=== PATIENT | female | born 1985 | race Two or more races ===

== ENCOUNTER 2019-02-08 23:17 | Inpatient (IN) | payer BC, OTHER ==
[~2019-02-08] VITALS: Ht 160 cm; Wt 61.2 kg
[2019-02-08 23:18] VITALS: BP 112/76
[2019-02-08] MEDS ORDERED: Ketorolac 30mg Inj IV ONE (23:30)
--- NOTE | 2019-02-08 23:31 | Emergency Room Report ---
History of Present Illness General Chief Complaint: Nausea, Vomiting, and Diarrhea Source: Patient, EMS Present Illness HPI This is a 33-year-old female with no past medical history. She presents with chief complaint of abdominal pain with nausea and vomiting. Onset around 6 PM. Last thing she ate was around noon. She ate a salad. Since then she has been having cramps and vomiting and retching. Unable to keep anything down. No fever chills. Pain is 9 out of 10.. Vomiting is nonbloody nonbilious. Pain is diffuse. Crampy in nature. No radiation. Allergies: Coded Allergies: INFLUENZA VIRUS VACCINES (Verified Allergy, Unknown, 02/08/19) VANCOMYCIN (Verified Allergy, Unknown, 02/08/19) Patient History Past Medical History: see triage record, old chart reviewed Past Surgical History: other - BTL Pertinent Family History: none Social History: Denies: smoking Immunizations: other Reviewed Nursing Documentation: PMH: Agreed; PSxH: Agreed Nursing Documentation-PMH Past Medical History: No Stated History Review of Systems Eye: Denies: eye pain, blurred vision ENT: Denies: ear pain, nose congestion, throat swelling Respiratory: Denies: cough, shortness of breath Cardiovascular: Denies: chest pain, palpitations Gastrointestinal: Reports: abdominal pain, nausea, vomiting; Denies: diarrhea Musculoskeletal: Denies: back pain, joint pain Skin: Denies: rash Neurological: Denies: headache, numbness Endocrine: Denies: increased thirst, increased urine Hematologic/Lymphatic: Denies: easy bruising All Other Systems: negative except mentioned in HPI Physical Exam Vital Signs Date Time Temp Pulse Resp B/P (MAP) Pulse Ox O2 Delivery O2 Flow Rate FiO2 02/08/19 23:18 99.0 86 18 112/76 (88) 99 Room Air Vitals normal Sp02 EP Interpretation: reviewed, normal General Appearance: well appearing, no apparent distress, alert Head: normocephalic, atraumatic Eyes: bilateral eye PERRL, bilateral eye EOMI ENT: hearing grossly normal, normal pharynx Neck: full range of motion, supple, no meningismus Respiratory: chest non-tender, lungs clear, normal breath sounds Cardiovascular #1: regular rate, rhythm, no murmur Gastrointestinal: no mass, no organomegaly, no bruit, non-distended, tenderness - diffuse, decreased bowel sounds Musculoskeletal: back normal, gait/station normal, normal range of motion Neurologic: alert, oriented x3 Psychiatric: mood/affect normal Medical Decision Making Diagnostic Impression: Primary Impression: SBO (small bowel obstruction) Additional Impressions: Abdominal pain Qualified Codes: R10.84 - Generalized abdominal pain Leukocytosis Qualified Codes: D72.829 - Elevated white blood cell count, unspecified ER Course Patient presents with acute onset abdominal pain with nausea and vomiting. She had possible small bowel obstruction secondary to a stricture. This is seen on CT scan. This may be secondary to inflammatory bowel disease. No family history of Crohn's disease or ulcerative colitis. Patient felt better after IV fluid, morphine and Zofran. NG tube placed. Patient has [employer] insurance. She is approved for here. I discussed the case with Dr. Roberts who will admit. Dr. Kay consulted. Other X-Ray Diagnostic Results Other X-Ray Diagnostic Results : X-Ray ordered: KUB # of Views/Limited Vs Complete: 1 View Indication: Pain EP Interpretation: Yes Interpretation: no dislocation, no soft tissue swelling, no fractures, other - NGT in good position. Impression: Other - NGT in good position. Electronically Signed by: Jose Person MD CT/MRI/US Diagnostic Results CT/MRI/US Diagnostic Results : Imaging Test Ordered: CT abdomen and pelvis Impression Read by radiologist. 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 Last Vital Signs Date Time Temp Pulse Resp B/P (MAP) Pulse Ox O2 Delivery O2 Flow Rate FiO2 02/08/19 23:18 99.0 86 18 112/76 (88) 99 Room Air Status: improved Disposition: ADMITTED INPATIENT Condition: Serious Jose Person MD Feb 08, 2019 23:31
[2019-02-08 23:39] LABS: HEMATOCRIT 46.1 % (37.0-47.0); HEMOGLOBIN 15.5 G/DL (12.0-16.0); MEAN CORPUSCULAR VOLUME 85 FL (80-99); PLATELET COUNT 245 K/UL (150-450); RED BLOOD COUNT 5.45 M/UL (4.20-5.40); RED CELL DISTRIBUTION WIDTH 11.4 % (11.6-14.8); WHITE BLOOD COUNT 20.6 K/UL (4.8-10.8)
[2019-02-08 23:48] LABS: ANION GAP 15 mmol/L (5-15); BLOOD UREA NITROGEN 9 mg/dL (7-18); CALCIUM 9.8 MG/DL (8.5-10.1); CARBON DIOXIDE 24 MMOL/L (21-32); CHLORIDE 104 MMOL/L (98-107); CREATININE 0.9 MG/DL (0.55-1.30); POTASSIUM 3.1 MMOL/L (3.5-5.1); SODIUM 142 MMOL/L (136-145)
[2019-02-08 23:53] LABS: ALANINE AMINOTRANSFERASE 25 U/L (12-78); ALBUMIN 4.6 G/DL (3.4-5.0); ALBUMIN/GLOBULIN RATIO 1.1 (1.0-2.7); ALKALINE PHOSPHATASE 83 U/L (46-116); ASPARTATE AMINO TRANSFERASE 21 U/L (15-37); BILIRUBIN,TOTAL 0.4 MG/DL (0.2-1.0)
[2019-02-09] MEDS ORDERED: Morphine Sulfate 4mg/ml Inj (IV USE ONLY) IVP ONE ×2 (00:15→03:45)
[2019-02-09 00:29] LABS: APPEARANCE,URINE CLEAR; BILIRUBIN, URINE NEGATIVE (NEGATIVE); GLUCOSE, URINE (UA) NEGATIVE (NEGATIVE); KETONES,URINE 3+ (NEGATIVE); LEUKOCYTE ESTERASE ,URINE 1+ (NEGATIVE); NITRITE,URINE NEGATIVE (NEGATIVE); PH,URINE 5 (4.5-8.0); PROTEIN,URINE 2+ (NEGATIVE); UROBILINOGEN,URINE NORMAL MG/DL (0.0-1.0)
[2019-02-09 00:30] LABS: COLOR,URINE YELLOW
--- NOTE | 2019-02-09 01:41 | Diagnostic Imaging Report ---
Indication: Abdominal pain and flank pain for one day Technique: Spiral acquisitions obtained through the abdomen and pelvis. No oral contrast utilized, per emergency room physician request No IV contrast utilized, per referring physician request.. Multiplanar reconstructions were generated. Total dose length product 583.19 mGycm. CTDIvol(s) 11.76 mGy. Dose reduction achieved using automated exposure control Comparison: None Findings: The distal ileum is markedly dilated, filled with small bowel feces. There is very slight stranding of the adjacent mesenteric fat. No definite transition point demonstrated, and the dilatation extends largely to the terminal ileum which is only slightly smaller in caliber than the more proximal bowel. There is a mildly dilated gas-filled single small bowel loop in the left upper quadrant with some small bowel feces seen within the adjacent segment. Normal appendix. No evidence of diverticulosis or diverticulitis. No free or loculated intraperitoneal gas or fluid. The distal esophagus, stomach, duodenum are unremarkable. Lack of IV contrast limits assessment of the solid organs. The liver, gallbladder, bile ducts, pancreas, spleen, adrenals are all unremarkable. There is a circumaortic left renal vein. The kidneys are unremarkable. No retroperitoneal or mesenteric mass or adenopathy. Uterus and ovaries are unremarkable. The included lung bases are clear. The bones are unremarkable. Impression: Dilated distal ileum with small bowel feces, slight stranding of the perienteric fat. Only slight tapering of the distal small bowel but no definite abrupt distal transition point. Suspect findings are functional on the basis of inflammatory changes of the distal ileum. Distal stricture not completely excludable. Single prominent gas-filled left upper quadrant small bowel loop, significance uncertain No other acute or significant abnormality. Incidental finding of circumaortic left renal vein This essentially agrees with the preliminary interpretation provided overnight by [facility] teleradiology service, with some variation. The CT scanner at [facility] is accredited by the [employer] and the scans are performed using protocols designed to limit radiation exposure to as low as reasonably achievable to attain images of sufficient resolution adequate for diagnostic evaluation.
[2019-02-09 02:11] VITALS: BP 141/92
[2019-02-09 04:53] VITALS: BP 155/109
[2019-02-09] MEDS ORDERED: MULTIVITAMINS1 EAC2 ORAL (06:22)
[2019-02-09] MEDS ORDERED: VITAMIN C500 M1 ORAL (06:22)
[2019-02-09] MEDS: Morphine Sulfate 2mg/ml Inj(IV/IM USE ONLY) IVP PRN (06:31)
[2019-02-09] MEDS: D5 1/2NS w/KCl 20mEq 1,000 ML IV SCH ×3 (06:43→21:42)
[2019-02-09 08:00] VITALS: BP 135/91
--- NOTE | 2019-02-09 09:04 | History & Physical ---
History and Physical History & Physicial SBO, stricture possible IBD n/v, low K CRPS RUE HTN surgical consult NGT IVF abx placed on CS transfer list Smith Roberts MD Feb 09, 2019 09:04
[2019-02-09 09:28] LABS: BASOPHILS % (AUTO) 0.6 % (0.0-2.0); EOSINOPHILS % (AUTO) 0.2 % (0.0-3.0); HEMATOCRIT 38.3 % (37.0-47.0); HEMOGLOBIN 12.9 G/DL (12.0-16.0); LYMPHOCYTES % (AUTO) 23.6 % (20.0-45.0); MEAN CORPUSCULAR VOLUME 86 FL (80-99); MONOCYTES % (AUTO) 6.2 % (1.0-10.0); NEUTROPHILS % (AUTO) 69.5 % (45.0-75.0); PLATELET COUNT 210 K/UL (150-450); RED BLOOD COUNT 4.45 M/UL (4.20-5.40); RED CELL DISTRIBUTION WIDTH 11.6 % (11.6-14.8); WHITE BLOOD COUNT 13.3 K/UL (4.8-10.8)
[2019-02-09 09:58] LABS: ANION GAP 10 mmol/L (5-15); BLOOD UREA NITROGEN 7 mg/dL (7-18); CALCIUM 8.3 MG/DL (8.5-10.1); CARBON DIOXIDE 25 MMOL/L (21-32); CHLORIDE 104 MMOL/L (98-107); CREATININE 0.8 MG/DL (0.55-1.30); POTASSIUM 3.4 MMOL/L (3.5-5.1); SODIUM 139 MMOL/L (136-145)
--- NOTE | 2019-02-09 10:02 | Diagnostic Imaging Report ---
Indication: Post nasogastric tube placement Technique: Supine view of the abdomen Comparison: none Findings: There is a nasogastric tube, tip of which projects at the level gastric body, proximal port beyond the gastroesophageal junction. Bowel gas pattern is unremarkable. No masses or unusual calcifications Impression: Satisfactory nasogastric intubation
[2019-02-09 12:00] VITALS: BP 146/96
[2019-02-09] MEDS: Morphine Sulfate 4mg/ml Inj (IV USE ONLY) IVP PRN (12:55)
[2019-02-09] MEDS ORDERED: NS 275ml ONE (12:58)
[2019-02-09] MEDS ORDERED: NS 500ML ONE (12:58)
[2019-02-09] MEDS ORDERED: Tubing IV Secondary IV ONE (12:58)
--- NOTE | 2019-02-09 15:18 | Consultation ---
History of Present Illness General Date patient seen: Feb 09, 2019 Reason for Hospitalization: Nausea, Vomiting, and Diarrhea Present Illness HPI This is a very pleasant 33-year-old female with no significant past medical history and history of lap scopic tubal ligation who presented with acute onset of abdominal pain nausea emesis and diarrhea for 1 day. States she was well yesterday until the evening when she began to have worsening abdominal discomfort followed by multiple bouts of nonbloody emesis and one episode of diarrhea yesterday. Came to the emergency room for evaluation at which time was identified to have a leukocytosis and CT scans concerning for small bowel obstruction. Patient was admitted for care and management. Surgery called to evaluate. Patient seen, patient evaluate, chart reviewed. Currently states she feels better. Is uncomfortable with NG tube but otherwise feeling better. Currently minimal nausea no emesis abdominal pain just cramping. States abdominal pain prior was 10 out of 10 cramping generalized abdominal pain but now subsided. Has not had flatus or bowel movement recently. Allergies: Coded Allergies: INFLUENZA VIRUS VACCINES (Verified Allergy, Unknown, 02/08/19) VANCOMYCIN (Verified Allergy, Unknown, 02/08/19) Medication History Scheduled Ascorbic Acid* (Vitamin C*), 1,000 MG ORAL DAILY, (Reported) Multivitamins* (Multivitamins*), 1 TAB ORAL DAILY, (Reported) Patient History History Provided By: Patient, Family Member, Significant Other, Medical Record , PMD Healthcare decision maker Resuscitation status Full Code Advanced Directive on File Past Medical/Surgical History Past Medical/Surgical History: (1) Leukocytosis (2) Abdominal pain (3) SBO (small bowel obstruction) Review of Systems Review of Symptoms General ROS: no weight loss or fever Psychological ROS: no depression or mood changes, no memory loss Ophthalmic ROS: no visual changes or eye irritation ENT ROS: no nasal congestion, hearing loss, dizziness Allergy and Immunology ROS: no allergic symptoms or urticaria Hematological and Lymphatic ROS: no swollen glands, unusual bleeding or bruising Endocrine ROS: no polyuria, polydipsia, weight changes, temperature intolerance Respiratory ROS: no cough, shortness of breath, or wheezing Cardiovascular ROS: no chest pain or dyspnea on exertion Gastrointestinal ROS: abdominal pain, no bright red blood in stool. Musculoskeletal ROS: no myalgias or arthralgias Neurological ROS: no TIA or stroke symptoms Dermatological ROS: no new or changing skin lesions, rashes or pruritis Physical Exam Physical Exam General appearance: alert, cooperative, no distress, appears stated age Head: Normocephalic, without obvious abnormality, atraumatic Eyes: conjunctivae/corneas clear. PERRL, EOM's intact. Fundi benign Throat: Lips, mucosa, and tongue normal. Teeth and gums normal Neck: supple, symmetrical, trachea midline, no adenopathy, thyroid: not enlarged, symmetric, no tenderness/mass/nodules, no carotid bruit and no JVD Lungs: clear to auscultation bilaterally Heart: regular rate and rhythm, S1, S2 normal, no murmur, click, rub or gallop Abdomen: soft, non-tender. Bowel sounds normal. No masses, no organomegaly Extremities: extremities normal, atraumatic, no cyanosis or edema Pulses: 2+ and symmetric Skin: Skin color, texture, turgor normal. No rashes or lesions Neurologic: Grossly normal Last 24 Hour Vital Signs Date Time Temp Pulse Resp B/P (MAP) Pulse Ox O2 Delivery O2 Flow Rate FiO2 02/09/19 12:00 98.4 80 16 146/96 (113) 98 02/09/19 09:00 Room Air 02/09/19 08:00 97.8 86 18 135/91 (106) 98 02/09/19 06:04 Room Air 02/09/19 04:53 98.4 96 16 155/109 (124) 99 02/09/19 04:13 99.0 89 18 141/92 99 Room Air 02/09/19 02:11 99.0 89 18 141/92 99 Room Air 02/09/19 00:45 99.0 02/09/19 00:05 99.0 02/08/19 23:18 99.0 87 18 112/76 99 Room Air 02/08/19 23:18 99.0 86 18 112/76 (88) 99 Room Air Intake and Output 02/08/19 02/09/19 19:00 07:00 Intake Total 100 ml Balance 100 ml Intake Oral 0 ml IV Total 100 ml # Voids 1 Laboratory Tests Test 02/08/19 23:29 02/09/19 00:22 02/09/19 08:35 White Blood Count 20.6 K/UL (4.8-10.8) H 13.3 K/UL (4.8-10.8) H Red Blood Count 5.45 M/UL (4.20-5.40) H 4.45 M/UL (4.20-5.40) Hemoglobin 15.5 G/DL (12.0-16.0) 12.9 G/DL (12.0-16.0) Hematocrit 46.1 % (37.0-47.0) 38.3 % (37.0-47.0) Mean Corpuscular Volume 85 FL (80-99) 86 FL (80-99) Mean Corpuscular Hemoglobin 28.4 PG (27.0-31.0) 29.0 PG (27.0-31.0) Mean Corpuscular Hemoglobin Concent 33.6 G/DL (32.0-36.0) 33.8 G/DL (32.0-36.0) Red Cell Distribution Width 11.4 % (11.6-14.8) L 11.6 % (11.6-14.8) Platelet Count 245 K/UL (150-450) 210 K/UL (150-450) Mean Platelet Volume 8.6 FL (6.5-10.1) 8.9 FL (6.5-10.1) Neutrophils (%) (Auto) % (45.0-75.0) 69.5 % (45.0-75.0) Lymphocytes (%) (Auto) % (20.0-45.0) 23.6 % (20.0-45.0) Monocytes (%) (Auto) % (1.0-10.0) 6.2 % (1.0-10.0) Eosinophils (%) (Auto) % (0.0-3.0) 0.2 % (0.0-3.0) Basophils (%) (Auto) % (0.0-2.0) 0.6 % (0.0-2.0) Differential Total Cells Counted 100 Neutrophils % (Manual) 79 % (45-75) H Lymphocytes % (Manual) 16 % (20-45) L Monocytes % (Manual) 5 % (1-10) Eosinophils % (Manual) 0 % (0-3) Basophils % (Manual) 0 % (0-2) Band Neutrophils 0 % (0-8) Platelet Estimate Adequate Platelet Morphology Normal Red Blood Cell Morphology Normal Sodium Level 142 MMOL/L (136-145) 139 MMOL/L (136-145) Potassium Level 3.1 MMOL/L (3.5-5.1) L 3.4 MMOL/L (3.5-5.1) L Chloride Level 104 MMOL/L (98-107) 104 MMOL/L (98-107) Carbon Dioxide Level 24 MMOL/L (21-32) 25 MMOL/L (21-32) Anion Gap 15 mmol/L (5-15) 10 mmol/L (5-15) Blood Urea Nitrogen 9 mg/dL (7-18) 7 mg/dL (7-18) Creatinine 0.9 MG/DL (0.55-1.30) 0.8 MG/DL (0.55-1.30) Estimat Glomerular Filtration Rate > 60 mL/min (>60) > 60 mL/min (>60) Glucose Level 161 MG/DL (74-106) H 112 MG/DL (74-106) H Calcium Level 9.8 MG/DL (8.5-10.1) 8.3 MG/DL (8.5-10.1) L Total Bilirubin 0.4 MG/DL (0.2-1.0) Aspartate Amino Transf (AST/SGOT) 21 U/L (15-37) Alanine Aminotransferase (ALT/SGPT) 25 U/L (12-78) Alkaline Phosphatase 83 U/L (46-116) Total Protein 8.8 G/DL (6.4-8.2) H Albumin 4.6 G/DL (3.4-5.0) Globulin 4.2 g/dL Albumin/Globulin Ratio 1.1 (1.0-2.7) Lipase 107 U/L (73-393) Urine Color Yellow Urine Appearance Clear Urine pH 5 (4.5-8.0) Urine Specific [place] 1.025 (1.005-1.035) Urine Protein 2+ (NEGATIVE) H Urine Glucose (UA) Negative (NEGATIVE) Urine Ketones 3+ (NEGATIVE) H Urine Blood 2+ (NEGATIVE) H Urine Nitrite Negative (NEGATIVE) Urine Bilirubin Negative (NEGATIVE) Urine Urobilinogen Normal MG/DL (0.0-1.0) Urine Leukocyte Esterase 1+ (NEGATIVE) H Urine RBC 2-4 /HPF (0 - 2) H Urine WBC 0-2 /HPF (0 - 2) Urine Squamous Epithelial Cells Few /LPF (NONE/OCC) Urine Bacteria Few /HPF (NONE) Urine HCG, Qualitative Negative (NEGATIVE) Height (Feet): 5 Height (Inches): 3.00 Weight (Pounds): 135 Medications Current Medications Medications (Trade) Dose Ordered Sig/Armando Route PRN Reason Start Time Stop Time Status Last Admin Dose Admin Ciprofloxacin 200 ml @ 200 mls/hr Q12H IV 02/09/19 14:00 02/16/19 13:59 02/09/19 14:49 Dextrose/ Electrolytes 1,000 ml @ 100 mls/hr Q10H IV 02/09/19 05:15 03/11/19 05:14 02/09/19 06:43 Metronidazole 100 ml @ 100 mls/hr Q8H IVPB 02/09/19 10:00 02/16/19 09:59 02/09/19 10:37 Morphine Sulfate (Morphine Sulfate) 2 mg Q3H PRN IVP Moderate Pain (Pain Scale 4-6) 02/09/19 05:15 02/16/19 05:14 02/09/19 06:31 Morphine Sulfate (Morphine Sulfate) 4 mg Q3H PRN IVP Severe Pain (Pain Scale 7-10) 02/09/19 05:15 02/16/19 05:14 02/09/19 12:55 Ondansetron HCl (Zofran) 4 mg Q4H PRN IVP Nausea & Vomiting 02/09/19 05:15 03/11/19 05:14 02/09/19 06:30 Assessment/Plan Problem List: (1) Leukocytosis ICD Codes: D72.829 - Elevated white blood cell count, unspecified SNOMED: 246220300, [id number] Qualifiers: Qualified Codes: D72.829 - Elevated white blood cell count, unspecified (2) Abdominal pain Assessment & Plan: 33-year-old female with acute onset abdominal pain nausea vomiting diarrhea. Leukocytosis 20,000 now resolving. Abdominal discomfort significantly improved since admission. Afebrile, hemodynamically stable. NG tube output with minimal clear gastric contents. No flatus or BM since admission. CT scan evaluated and are reviewed. Initial reading possible small bowel obstruction secondary to stricture with our radiologist noting a slight discrepancy with no definitive transition point. Abdominal exam is fairly benign at this time CT reviewed and agree with our radiologist interpretation Leukocytosis improving NG tube output minimal I had a long discussion with patient and her family at bedside they do not recommend urgent surgical intervention as she is improved since admission. Recommend bowel rest n.p.o. IV antibiotics for likely enteritis. She has no significant history of Crohn's, colitis, and family bowel disease or syndrome. This is acute onset of abdominal pain with nausea vomiting and diarrhea more likely enteritis associated with potential oral intake. Will follow with serial abdominal exams. If improving will anticipate removal of NG tube and trial oral diet. If worsening we will have to consider diagnostic laparoscopy to ensure no abnormal intra abdominal process Thank you for allowing participate in patient care will follow with recommendations ICD Codes: R10.9 - Unspecified abdominal pain SNOMED: [id number], [id number] Qualifiers: Qualified Codes: R10.84 - Generalized abdominal pain (3) SBO (small bowel obstruction) Assessment & Plan: Findings: The distal ileum is markedly dilated, filled with small bowel feces. There is very slight stranding of the adjacent mesenteric fat. No definite transition point demonstrated, and the dilatation extends largely to the terminal ileum which is only slightly smaller in caliber than the more proximal bowel. There is a mildly dilated gas-filled single small bowel loop in the left upper quadrant with some small bowel feces seen within the adjacent segment. Normal appendix. No evidence of diverticulosis or diverticulitis. No free or loculated intraperitoneal gas or fluid. The distal esophagus, stomach, duodenum are unremarkable. Lack of IV contrast limits assessment of the solid organs. The liver, gallbladder, bile ducts, pancreas, spleen, adrenals are all unremarkable. There is a circumaortic left renal vein. The kidneys are unremarkable. No retroperitoneal or mesenteric mass or adenopathy. Uterus and ovaries are unremarkable. The included lung bases are clear. The bones are unremarkable. Impression: Dilated distal ileum with small bowel feces, slight stranding of the perienteric fat. Only slight tapering of the distal small bowel but no definite abrupt distal transition point. Suspect findings are functional on the basis of inflammatory changes of the distal ileum. Distal stricture not completely excludable. Single prominent gas-filled left upper quadrant small bowel loop, significance uncertain No other acute or significant abnormality. Incidental finding of circumaortic left renal vein This essentially agrees with the preliminary interpretation provided overnight by [facility], with some variation. ICD Codes: K56.609 - Unspecified intestinal obstruction, unspecified as to partial versus complete obstruction SNOMED: [id number], [id number] Jerel Kay Feb 09, 2019 15:18
[2019-02-09 16:00] VITALS: BP 156/105
--- NOTE | 2019-02-09 17:30 | History and Physical Report ---
DATE OF ADMISSION: 02/09/2019 CHIEF COMPLAINT: Abdominal pain and vomiting. HISTORY OF PRESENT ILLNESS: This is a 33-year-old woman was in normal health until yesterday afternoon around 4 p.m. when she began having abdominal pain. By 8 p.m., she began having severe pain and vomiting. She came to the emergency department by paramedics and was found to have a bowel obstruction with a possible stricture of the small bowel and admission was arranged. She is feeling better after pain medication and intravenous fluids. She has a history of tubal ligation, but no other abdominal surgery in the past. She has had no problem with abdominal complaints in the past. PAST MEDICAL HISTORY: Complex regional pain syndrome involving the right upper extremity following the injury. She has mild hypertension and was started on medication a few weeks ago. SURGICAL HISTORY: She had no other surgical history except tubal ligation as noted above. ALLERGIES: Flu vaccine and vancomycin. MEDICATIONS: She is on unknown blood pressure medication and vitamins. Since coming to the emergency department, she was given morphine, Cipro, and Flagyl as well as intravenous fluids. REVIEW OF SYSTEMS: Otherwise unremarkable. PHYSICAL EXAMINATION: GENERAL: The patient is alert and responds appropriately. VITAL SIGNS: Stable. The blood pressure was as high as 155/109, but this morning is 135/91. There is no fever. She is somewhat overweight. HEENT: The head is normocephalic. NECK: No jugular venous distention. CHEST: Clear cardiac rhythm is regular. ABDOMEN: Soft. There is mild tenderness in the periumbilical area in the right lower quadrant. There is no liver or spleen enlargement. No mass or ascites. There is no distention. Bowel sounds are hypoactive. EXTREMITIES: Have no clubbing, cyanosis, or edema. LABORATORY AND DIAGNOSTIC DATA: Laboratory studies showed the urine had some ketones, protein, and a few red cells, though there is no sign of infection. The white count is 20,600, hemoglobin is 15.5. There is a left shift. Chemistry shows low potassium. BUN is 9, creatinine 0.9, blood sugar 161, protein 8.8, otherwise unremarkable. CT of the abdomen shows a long segment of narrowing of the small bowel with wall thickening suggesting a stricture with dilated small bowel loops, some of which contain fecal material. There is no free air or fluid. The findings suggest inflammatory bowel disease causing the stricture. IMPRESSION: 1. Small bowel obstruction due to stricture. 2. Nausea, vomiting, and hypokalemia. 3. Possible inflammatory bowel disease. 4. Right upper extremity complex regional pain syndrome. 5. Borderline hypertension. PLAN: The patient will be given intravenous fluids, antibiotics, and pain medications. Surgery consultation has been requested. Smith Roberts M.D. DR: ALINE JOB#: [id number] CC:
[2019-02-09 20:00] VITALS: BP 151/98
[2019-02-10] VITALS: BP 149/96
[2019-02-10 04:00] VITALS: BP 158/99
[2019-02-10 06:00] LABS: BASOPHILS % (AUTO) 0.4 % (0.0-2.0); EOSINOPHILS % (AUTO) 0.3 % (0.0-3.0); HEMATOCRIT 40.5 % (37.0-47.0); HEMOGLOBIN 13.7 G/DL (12.0-16.0); LYMPHOCYTES % (AUTO) 25.2 % (20.0-45.0); MEAN CORPUSCULAR VOLUME 86 FL (80-99); MONOCYTES % (AUTO) 8.2 % (1.0-10.0); NEUTROPHILS % (AUTO) 65.9 % (45.0-75.0); PLATELET COUNT 236 K/UL (150-450); RED BLOOD COUNT 4.72 M/UL (4.20-5.40); RED CELL DISTRIBUTION WIDTH 11.6 % (11.6-14.8); WHITE BLOOD COUNT 9.8 K/UL (4.8-10.8)
[2019-02-10 06:35] LABS: ALANINE AMINOTRANSFERASE 17 U/L (12-78); ALBUMIN 3.7 G/DL (3.4-5.0); ALKALINE PHOSPHATASE 63 U/L (46-116); ANION GAP 8 mmol/L (5-15); ASPARTATE AMINO TRANSFERASE 15 U/L (15-37); BILIRUBIN,TOTAL 0.4 MG/DL (0.2-1.0); BLOOD UREA NITROGEN 3 mg/dL (7-18); CALCIUM 8.9 MG/DL (8.5-10.1); CARBON DIOXIDE 28 MMOL/L (21-32); CHLORIDE 107 MMOL/L (98-107); CREATININE 0.8 MG/DL (0.55-1.30); POTASSIUM 3.4 MMOL/L (3.5-5.1); SODIUM 143 MMOL/L (136-145)
[2019-02-10 08:00] VITALS: BP 140/96
[2019-02-10] MEDS: Morphine Sulfate 4mg/ml Inj (IV USE ONLY) IVP PRN (09:30)
[2019-02-10] MEDS: D5 1/2NS w/KCl 20mEq 1,000 ML IV SCH (09:30)
[2019-02-10 12:00] VITALS: BP 157/105
--- NOTE | 2019-02-10 14:14 | Surgery Progress Note ---
Surgery Progress Note Subjective Additional Comments Patient seen and examined bedside. States passing flatus earlier today. Leukocytosis resolved. Labs noted. Pain about the same. Right lower quadrant discomfort at times. NG tube output clear now Objective Last 24 Hour Vital Signs Date Time Temp Pulse Resp B/P (MAP) Pulse Ox O2 Delivery O2 Flow Rate FiO2 02/10/19 12:00 98.6 77 157/105 (122) 02/10/19 08:08 Room Air 02/10/19 08:00 98.2 87 18 140/96 (111) 97 02/10/19 04:00 98.9 89 18 158/99 (118) 98 02/10/19 00:00 98.6 87 16 149/96 (113) 97 02/09/19 21:00 Room Air 02/09/19 20:00 98.9 96 16 151/98 (115) 98 02/09/19 16:00 98.3 84 16 156/105 (122) 96 I&O Intake and Output 02/09/19 02/10/19 18:59 06:59 Intake Total 1500 ml 600 ml Output Total 100 ml 1625 ml Balance 1400 ml -1025 ml IV Total 1500 ml 600 ml Output Urine Total 1400 ml Gastric Drainage Total 100 ml 225 ml # Voids 1 2 Cardiovascular: RSR Respiratory: clear Abdomen: soft, distended - Mild, tenderness - Some discomfort in the right lower quadrant. No rebound or guarding, decreased bowel sounds Extremities: no edema, no tenderness, no cyanosis Laboratory Tests Test 02/10/19 05:20 White Blood Count 9.8 K/UL (4.8-10.8) Red Blood Count 4.72 M/UL (4.20-5.40) Hemoglobin 13.7 G/DL (12.0-16.0) Hematocrit 40.5 % (37.0-47.0) Mean Corpuscular Volume 86 FL (80-99) Mean Corpuscular Hemoglobin 28.9 PG (27.0-31.0) Mean Corpuscular Hemoglobin Concent 33.7 G/DL (32.0-36.0) Red Cell Distribution Width 11.6 % (11.6-14.8) Platelet Count 236 K/UL (150-450) Mean Platelet Volume 9.0 FL (6.5-10.1) Neutrophils (%) (Auto) 65.9 % (45.0-75.0) Lymphocytes (%) (Auto) 25.2 % (20.0-45.0) Monocytes (%) (Auto) 8.2 % (1.0-10.0) Eosinophils (%) (Auto) 0.3 % (0.0-3.0) Basophils (%) (Auto) 0.4 % (0.0-2.0) Erythrocyte Sedimentation Rate 24 MM/HR (0-20) H Sodium Level 143 MMOL/L (136-145) Potassium Level 3.4 MMOL/L (3.5-5.1) L Chloride Level 107 MMOL/L (98-107) Carbon Dioxide Level 28 MMOL/L (21-32) Anion Gap 8 mmol/L (5-15) Blood Urea Nitrogen 3 mg/dL (7-18) L Creatinine 0.8 MG/DL (0.55-1.30) Estimat Glomerular Filtration Rate > 60 mL/min (>60) Glucose Level 124 MG/DL (74-106) H Calcium Level 8.9 MG/DL (8.5-10.1) Total Bilirubin 0.4 MG/DL (0.2-1.0) Aspartate Amino Transf (AST/SGOT) 15 U/L (15-37) Alanine Aminotransferase (ALT/SGPT) 17 U/L (12-78) Alkaline Phosphatase 63 U/L (46-116) C-Reactive Protein, Quantitative 1.5 mg/dL (0.00-0.90) H Total Protein 7.4 G/DL (6.4-8.2) Albumin 3.7 G/DL (3.4-5.0) Globulin 3.7 g/dL Albumin/Globulin Ratio 1.0 (1.0-2.7) Amylase Level 66 U/L (25-115) Lipase 114 U/L (73-393) Plan Problems: (1) Leukocytosis (2) Abdominal pain Assessment & Plan: 33-year-old female with acute onset abdominal pain nausea vomiting diarrhea. Leukocytosis 20,000 now resolving. Abdominal discomfort significantly improved since admission. Afebrile, hemodynamically stable. NG tube output with minimal clear gastric contents. No flatus or BM since admission. CT scan evaluated and are reviewed. Initial reading possible small bowel obstruction secondary to stricture with our radiologist noting a slight discrepancy with no definitive transition point. Abdominal exam is fairly benign at this time CT reviewed and agree with our radiologist interpretation Leukocytosis improving NG tube output minimal I had a long discussion with patient and her family at bedside they do not recommend urgent surgical intervention as she is improved since admission. Recommend bowel rest n.p.o. IV antibiotics for likely enteritis. She has no significant history of Crohn's, colitis, and family bowel disease or syndrome. This is acute onset of abdominal pain with nausea vomiting and diarrhea more likely enteritis associated with potential oral intake. Will follow with serial abdominal exams. If improving will anticipate removal of NG tube and trial oral diet. If worsening we will have to consider diagnostic laparoscopy to ensure no abnormal intra abdominal process Discussed with the patient and her family at bedside in regards to plan and care. Patient has not made significant improvement but is passing flatus. NG tube output is clearing up. Abdominal exam with some discomfort but no peritoneal signs significant tenderness rebound or guarding. Patient states she overall feels unwell but feels more comfortable when she gets the morphine. Labs have improved. I discussed with patient and family above and plan. Will consider diagnostic laparoscopy if does not significantly improve by tomorrow. Continue current management will follow with recognitions Thank you for allowing participate in patient care will follow with recommendations (3) SBO (small bowel obstruction) Assessment & Plan: Findings: The distal ileum is markedly dilated, filled with small bowel feces. There is very slight stranding of the adjacent mesenteric fat. No definite transition point demonstrated, and the dilatation extends largely to the terminal ileum which is only slightly smaller in caliber than the more proximal bowel. There is a mildly dilated gas-filled single small bowel loop in the left upper quadrant with some small bowel feces seen within the adjacent segment. Normal appendix. No evidence of diverticulosis or diverticulitis. No free or loculated intraperitoneal gas or fluid. The distal esophagus, stomach, duodenum are unremarkable. Lack of IV contrast limits assessment of the solid organs. The liver, gallbladder, bile ducts, pancreas, spleen, adrenals are all unremarkable. There is a circumaortic left renal vein. The kidneys are unremarkable. No retroperitoneal or mesenteric mass or adenopathy. Uterus and ovaries are unremarkable. The included lung bases are clear. The bones are unremarkable. Impression: Dilated distal ileum with small bowel feces, slight stranding of the perienteric fat. Only slight tapering of the distal small bowel but no definite abrupt distal transition point. Suspect findings are functional on the basis of inflammatory changes of the distal ileum. Distal stricture not completely excludable. Single prominent gas-filled left upper quadrant small bowel loop, significance uncertain No other acute or significant abnormality. Incidental finding of circumaortic left renal vein This essentially agrees with the preliminary interpretation provided overnight by [facility] teleradiology service, with some variation. Jerel Kay Feb 10, 2019 14:14
[2019-02-10 16:00] VITALS: BP 118/71
[2019-02-10] MEDS ORDERED: Tubing IV Secondary IV ONE (16:36)
--- NOTE | 2019-02-10 18:44 | Pulmonology Progress Note ---
Assessment/Plan Assessment/Plan 1. Small bowel obstruction due to stricture. 2. Nausea, vomiting, and hypokalemia. 3. Possible inflammatory bowel disease. 4. Right upper extremity complex regional pain syndrome. 5. Borderline hypertension. 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 in am check labs pain cotnrol dvt prophylaxis Subjective Constitutional: Reports: no symptoms HEENT: Repors: no symptoms Respiratory: Reports: no symptoms Cardiovascular: Reports: no symptoms Gastrointestinal/Abdominal: Reports: nausea, vomiting, other - pain Neurologic: Reports: no symptoms Psychiatric: Reports: no symptoms Allergies: Coded Allergies: INFLUENZA VIRUS VACCINES (Verified Allergy, Unknown, 02/08/19) VANCOMYCIN (Verified Allergy, Unknown, 02/08/19) Subjective NGt to LIWS positive output signficnatn pain no fever no bleeding 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 Objective Last 24 Hour Vital Signs Date Time Temp Pulse Resp B/P (MAP) Pulse Ox O2 Delivery O2 Flow Rate FiO2 02/10/19 16:00 97.8 71 18 118/71 (87) 98 02/10/19 12:00 98.6 77 157/105 (122) 02/10/19 08:08 Room Air 02/10/19 08:00 98.2 87 18 140/96 (111) 97 02/10/19 04:00 98.9 89 18 158/99 (118) 98 02/10/19 00:00 98.6 87 16 149/96 (113) 97 02/09/19 21:00 Room Air 02/09/19 20:00 98.9 96 16 151/98 (115) 98 Intake and Output 02/09/19 02/10/19 19:00 07:00 Intake Total 1400 ml 600 ml Output Total 100 ml 1625 ml Balance 1300 ml -1025 ml IV Total 1400 ml 600 ml Output Urine Total 1400 ml Gastric Drainage Total 100 ml 225 ml # Voids 1 2 General Appearance: WD/WN Respiratory/Chest: lungs clear, normal breath sounds Cardiovascular: normal rate, regular rhythm Abdomen: distended, guarding, tender Neurologic/Psychiatric: alert, oriented x 3 Laboratory Tests 02/10/19 05:20: White Blood Count 9.8, Red Blood Count 4.72, Hemoglobin 13.7, Hematocrit 40.5, Mean Corpuscular Volume 86, Mean Corpuscular Hemoglobin 28.9, Mean Corpuscular Hemoglobin Concent 33.7, Red Cell Distribution Width 11.6, Platelet Count 236, Mean Platelet Volume 9.0, Neutrophils (%) (Auto) 65.9, Lymphocytes (%) (Auto) 25.2, Monocytes (%) (Auto) 8.2, Eosinophils (%) (Auto) 0.3, Basophils (%) (Auto ) 0.4, Erythrocyte Sedimentation Rate 24H, Sodium Level 143, Potassium Level 3.4L, Chloride Level 107, Carbon Dioxide Level 28, Anion Gap 8, Blood Urea Nitrogen 3L, Creatinine 0.8, Estimat Glomerular Filtration Rate > 60, Glucose Level 124H, Calcium Level 8.9, Total Bilirubin 0.4, Aspartate Amino Transf (AST/ SGOT) 15, Alanine Aminotransferase (ALT/SGPT) 17, Alkaline Phosphatase 63, C- Reactive Protein, Quantitative 1.5H, Total Protein 7.4, Albumin 3.7, Globulin 3.7, Albumin/Globulin Ratio 1.0, Amylase Level 66, Lipase 114 Current Medications Medications (Trade) Dose Ordered Sig/Armando Route PRN Reason Start Time Stop Time Status Last Admin Dose Admin Ciprofloxacin 200 ml @ 200 mls/hr Q12H IV 02/09/19 14:00 02/16/19 13:59 02/10/19 16:02 Dextrose/ Electrolytes 1,000 ml @ 100 mls/hr Q10H IV 02/09/19 05:15 03/11/19 05:14 02/10/19 09:30 Metronidazole 100 ml @ 100 mls/hr Q8H IVPB 02/09/19 10:00 02/16/19 09:59 02/10/19 17:35 Morphine Sulfate (Morphine Sulfate) 2 mg Q3H PRN IVP Moderate Pain (Pain Scale 4-6) 02/09/19 05:15 02/16/19 05:14 02/09/19 06:31 Morphine Sulfate (Morphine Sulfate) 4 mg Q3H PRN IVP Severe Pain (Pain Scale 7-10) 02/09/19 05:15 02/16/19 05:14 02/10/19 09:30 Ondansetron HCl (Zofran) 4 mg Q4H PRN IVP Nausea & Vomiting 02/09/19 05:15 03/11/19 05:14 02/10/19 17:34 Ольга Robledo DO Feb 10, 2019 18:44
[2019-02-10 20:00] VITALS: BP 148/95
[2019-02-10] MEDS: D5NS w/KCl 40mEq 1000ml 1,000 ML IV SCH (21:16)
[2019-02-11] VITALS: BP 157/97
[2019-02-11] MEDS: Morphine Sulfate 2mg/ml Inj(IV/IM USE ONLY) IVP PRN ×2 (00:01→02:57)
[2019-02-11 04:00] VITALS: BP 158/104
[2019-02-11] MEDS: D5NS w/KCl 40mEq 1000ml 1,000 ML IV SCH ×2 (05:45→14:20)
[2019-02-11 06:00] LABS: BASOPHILS % (AUTO) 0.5 % (0.0-2.0); EOSINOPHILS % (AUTO) 0.2 % (0.0-3.0); HEMATOCRIT 41.5 % (37.0-47.0); HEMOGLOBIN 13.8 G/DL (12.0-16.0); LYMPHOCYTES % (AUTO) 19.5 % (20.0-45.0); MEAN CORPUSCULAR VOLUME 86 FL (80-99); MONOCYTES % (AUTO) 6.6 % (1.0-10.0); NEUTROPHILS % (AUTO) 73.2 % (45.0-75.0); PLATELET COUNT 222 K/UL (150-450); RED BLOOD COUNT 4.84 M/UL (4.20-5.40); RED CELL DISTRIBUTION WIDTH 11.5 % (11.6-14.8); WHITE BLOOD COUNT 12.5 K/UL (4.8-10.8)
[2019-02-11 06:26] LABS: ALANINE AMINOTRANSFERASE 16 U/L (12-78); ALBUMIN 3.5 G/DL (3.4-5.0); ALKALINE PHOSPHATASE 56 U/L (46-116); ANION GAP 9 mmol/L (5-15); ASPARTATE AMINO TRANSFERASE 12 U/L (15-37); BILIRUBIN,TOTAL 0.3 MG/DL (0.2-1.0); BLOOD UREA NITROGEN 4 mg/dL (7-18); CALCIUM 8.6 MG/DL (8.5-10.1); CARBON DIOXIDE 26 MMOL/L (21-32); CHLORIDE 108 MMOL/L (98-107); CREATININE 0.7 MG/DL (0.55-1.30); POTASSIUM 3.6 MMOL/L (3.5-5.1); SODIUM 143 MMOL/L (136-145)
[2019-02-11 08:00] VITALS: BP 152/103
--- NOTE | 2019-02-11 08:34 | Diagnostic Imaging Report ---
EXAM: XR Abdomen, 2 Views CLINICAL HISTORY: ABD PAIN TECHNIQUE: Frontal views of the abdomen pelvis. COMPARISON: CT abdomen pelvis dated 02 09 19. FINDINGS: Lower thorax: The lung bases appear clear. Intraperitoneal space: No evidence of intraperitoneal free air. Gastrointestinal tract: Nonspecific nonobstructive bowel gas pattern. No evidence of pneumatosis intestinalis. Organs: Renal shadows obscured by overlying bowel gas. Bones joints: Unremarkable. Tubes, lines and devices: NG tube tip in the region of the stomach. IMPRESSION: No acute findings.
[2019-02-11 11:52] VITALS: BP 159/103
--- NOTE | 2019-02-11 13:57 | Surgery Progress Note ---
Surgery Progress Note Subjective Additional Comments only mild abdominal discomfort. no pain. intermittent nausea ng tube output minimal labs noted KUB noted Objective Last 24 Hour Vital Signs Date Time Temp Pulse Resp B/P (MAP) Pulse Ox O2 Delivery O2 Flow Rate FiO2 02/11/19 11:52 98.2 84 19 159/103 (121) 97 02/11/19 09:00 Room Air 02/11/19 08:00 98.6 85 19 152/103 (119) 97 02/11/19 04:00 98.6 95 18 158/104 (122) 97 02/11/19 00:00 98.5 85 20 157/97 (117) 96 02/10/19 21:00 Room Air 02/10/19 20:00 98.0 89 18 148/95 (112) 98 02/10/19 16:00 97.8 71 18 118/71 (87) 98 I&O Intake and Output 02/10/19 02/11/19 18:59 06:59 Intake Total 500 ml Output Total 1275 ml Balance -775 ml IV Total 500 ml Output Urine Total 600 ml Gastric Drainage Total 675 ml # Voids 5 Cardiovascular: RSR Respiratory: clear Abdomen: soft, flat, non-tender, present bowel sounds, non-distended Extremities: no edema, no tenderness, no cyanosis Laboratory Tests Test 02/11/19 05:25 White Blood Count 12.5 K/UL (4.8-10.8) H Red Blood Count 4.84 M/UL (4.20-5.40) Hemoglobin 13.8 G/DL (12.0-16.0) Hematocrit 41.5 % (37.0-47.0) Mean Corpuscular Volume 86 FL (80-99) Mean Corpuscular Hemoglobin 28.5 PG (27.0-31.0) Mean Corpuscular Hemoglobin Concent 33.2 G/DL (32.0-36.0) Red Cell Distribution Width 11.5 % (11.6-14.8) L Platelet Count 222 K/UL (150-450) Mean Platelet Volume 8.2 FL (6.5-10.1) Neutrophils (%) (Auto) 73.2 % (45.0-75.0) Lymphocytes (%) (Auto) 19.5 % (20.0-45.0) L Monocytes (%) (Auto) 6.6 % (1.0-10.0) Eosinophils (%) (Auto) 0.2 % (0.0-3.0) Basophils (%) (Auto) 0.5 % (0.0-2.0) Prothrombin Time 10.8 SEC (9.30-11.50) Prothromb Time International Ratio 1.0 (0.9-1.1) Activated Partial Thromboplast Time 29 SEC (23-33) Sodium Level 143 MMOL/L (136-145) Potassium Level 3.6 MMOL/L (3.5-5.1) Chloride Level 108 MMOL/L (98-107) H Carbon Dioxide Level 26 MMOL/L (21-32) Anion Gap 9 mmol/L (5-15) Blood Urea Nitrogen 4 mg/dL (7-18) L Creatinine 0.7 MG/DL (0.55-1.30) Estimat Glomerular Filtration Rate > 60 mL/min (>60) Glucose Level 130 MG/DL (74-106) H Calcium Level 8.6 MG/DL (8.5-10.1) Total Bilirubin 0.3 MG/DL (0.2-1.0) Aspartate Amino Transf (AST/SGOT) 12 U/L (15-37) L Alanine Aminotransferase (ALT/SGPT) 16 U/L (12-78) Alkaline Phosphatase 56 U/L (46-116) Total Protein 7.1 G/DL (6.4-8.2) Albumin 3.5 G/DL (3.4-5.0) Globulin 3.6 g/dL Albumin/Globulin Ratio 1.0 (1.0-2.7) Plan Problems: (1) Leukocytosis (2) Abdominal pain Assessment & Plan: 33-year-old female with acute onset abdominal pain nausea vomiting diarrhea. Leukocytosis 20,000 now resolving. Abdominal discomfort significantly improved since admission. Afebrile, hemodynamically stable. NG tube output with minimal clear gastric contents. No flatus or BM since admission. CT scan evaluated and are reviewed. Initial reading possible small bowel obstruction secondary to stricture with our radiologist noting a slight discrepancy with no definitive transition point. Abdominal exam is fairly benign at this time CT reviewed and agree with our radiologist interpretation Leukocytosis improving NG tube output minimal I had a long discussion with patient and her family at bedside they do not recommend urgent surgical intervention as she is improved since admission. Recommend bowel rest n.p.o. IV antibiotics for likely enteritis. She has no significant history of Crohn's, colitis, and family bowel disease or syndrome. This is acute onset of abdominal pain with nausea vomiting and diarrhea more likely enteritis associated with potential oral intake. Will follow with serial abdominal exams. If improving will anticipate removal of NG tube and trial oral diet. If worsening we will have to consider diagnostic laparoscopy to ensure no abnormal intra abdominal process Discussed with the patient and her family at bedside in regards to plan and care. Patient has not made significant improvement but is passing flatus. NG tube output is clearing up. Abdominal exam with some discomfort but no peritoneal signs significant tenderness rebound or guarding. Patient states she overall feels unwell but feels more comfortable when she gets the morphine. Labs have improved. I discussed with patient and family above and plan. Will consider diagnostic laparoscopy if does not significantly improve by tomorrow. Continue current management will follow with recognitions Thank you for allowing participate in patient care will follow with recommendations d/c NG tube upper gi with small bowel tomorrow to eval bowel caliber and sbo? thank you] (3) SBO (small bowel obstruction) Assessment & Plan: Findings: The distal ileum is markedly dilated, filled with small bowel feces. There is very slight stranding of the adjacent mesenteric fat. No definite transition point demonstrated, and the dilatation extends largely to the terminal ileum which is only slightly smaller in caliber than the more proximal bowel. There is a mildly dilated gas-filled single small bowel loop in the left upper quadrant with some small bowel feces seen within the adjacent segment. Normal appendix. No evidence of diverticulosis or diverticulitis. No free or loculated intraperitoneal gas or fluid. The distal esophagus, stomach, duodenum are unremarkable. Lack of IV contrast limits assessment of the solid organs. The liver, gallbladder, bile ducts, pancreas, spleen, adrenals are all unremarkable. There is a circumaortic left renal vein. The kidneys are unremarkable. No retroperitoneal or mesenteric mass or adenopathy. Uterus and ovaries are unremarkable. The included lung bases are clear. The bones are unremarkable. Impression: Dilated distal ileum with small bowel feces, slight stranding of the perienteric fat. Only slight tapering of the distal small bowel but no definite abrupt distal transition point. Suspect findings are functional on the basis of inflammatory changes of the distal ileum. Distal stricture not completely excludable. Single prominent gas-filled left upper quadrant small bowel loop, significance uncertain No other acute or significant abnormality. Incidental finding of circumaortic left renal vein This essentially agrees with the preliminary interpretation provided overnight by [facility] teleradiology service, with some variation. Jerel Kay Feb 11, 2019 13:57
[2019-02-11] MEDS ORDERED: Metoclopramide 10mg/2ml Inj IVP PRN (14:00)
[2019-02-11] MEDS ORDERED: Gastrograffin 30ml ORAL PRN (14:00)
[2019-02-11 16:00] VITALS: BP 155/99
--- NOTE | 2019-02-11 19:33 | Pulmonology Progress Note ---
Assessment/Plan Assessment/Plan 1. Small bowel obstruction due to stricture. 2. Nausea, vomiting, and hypokalemia. 3. Possible inflammatory bowel disease. 4. Right upper extremity complex regional pain syndrome. 5. Borderline hypertension. imagign in am surgery if positive npo check labs pain control dvt prophylaxis IVf Subjective Constitutional: Reports: no symptoms HEENT: Repors: no symptoms Respiratory: Reports: no symptoms Cardiovascular: Reports: no symptoms Genitourinary: Reports: no symptoms Allergies: Coded Allergies: INFLUENZA VIRUS VACCINES (Verified Allergy, Unknown, 02/08/19) VANCOMYCIN (Verified Allergy, Unknown, 02/08/19) Subjective ngt removed pain better on RA no fever no bleeding remains NPO Objective Last 24 Hour Vital Signs Date Time Temp Pulse Resp B/P (MAP) Pulse Ox O2 Delivery O2 Flow Rate FiO2 02/11/19 16:00 98.3 87 20 155/99 (117) 99 02/11/19 11:52 98.2 84 19 159/103 (121) 97 02/11/19 09:00 Room Air 02/11/19 08:00 98.6 85 19 152/103 (119) 97 02/11/19 04:00 98.6 95 18 158/104 (122) 97 02/11/19 00:00 98.5 85 20 157/97 (117) 96 02/10/19 21:00 Room Air 02/10/19 20:00 98.0 89 18 148/95 (112) 98 Intake and Output 02/10/19 02/11/19 19:00 07:00 Intake Total 600 ml Output Total 1275 ml Balance -675 ml IV Total 600 ml Output Urine Total 600 ml Gastric Drainage Total 675 ml # Voids 5 General Appearance: WD/WN Respiratory/Chest: lungs clear, normal breath sounds Cardiovascular: normal rate, regular rhythm Abdomen: absent bowel sounds, tender Extremities: no cyanosis Neurologic/Psychiatric: alert, oriented x 3 Lymphatic: no neck adenopathy Laboratory Tests 02/11/19 05:25: White Blood Count 12.5H, Red Blood Count 4.84, Hemoglobin 13.8, Hematocrit 41.5 , Mean Corpuscular Volume 86, Mean Corpuscular Hemoglobin 28.5, Mean Corpuscular Hemoglobin Concent 33.2, Red Cell Distribution Width 11.5L, Platelet Count 222, Mean Platelet Volume 8.2, Neutrophils (%) (Auto) 73.2, Lymphocytes (%) (Auto) 19.5L, Monocytes (%) (Auto) 6.6, Eosinophils (%) (Auto) 0.2, Basophils (%) (Auto) 0.5, Prothrombin Time 10.8, Prothromb Time International Ratio 1.0, Activated Partial Thromboplast Time 29, Sodium Level 143, Potassium Level 3.6, Chloride Level 108H, Carbon Dioxide Level 26, Anion Gap 9, Blood Urea Nitrogen 4L, Creatinine 0.7, Estimat Glomerular Filtration Rate > 60, Glucose Level 130H, Calcium Level 8.6, Total Bilirubin 0.3, Aspartate Amino Transf (AST/SGOT) 12L, Alanine Aminotransferase (ALT/SGPT) 16, Alkaline Phosphatase 56, Total Protein 7.1, Albumin 3.5, Globulin 3.6, Albumin/ Globulin Ratio 1.0 Current Medications Medications (Trade) Dose Ordered Sig/Armando Route PRN Reason Start Time Stop Time Status Last Admin Dose Admin Ciprofloxacin 200 ml @ 200 mls/hr Q12H IV 02/09/19 14:00 02/16/19 13:59 02/11/19 14:20 Dextrose/ Electrolytes 1,000 ml @ 100 mls/hr Q10H IV 02/10/19 19:30 03/12/19 19:29 02/11/19 14:20 Diatrizoate Meglum/ Diatrizoate Sod (Gastrografin) 30 ml NOW PRN ORAL Radiology Procedure 02/11/19 14:00 02/14/19 13:57 Metoclopramide HCl (Reglan) 10 mg Q6H PRN IVP Nausea & Vomiting 02/11/19 14:00 03/13/19 13:59 Metronidazole 100 ml @ 100 mls/hr Q8H IVPB 02/09/19 10:00 02/16/19 09:59 02/11/19 17:13 Morphine Sulfate (Morphine Sulfate) 2 mg Q3H PRN IVP Moderate Pain (Pain Scale 4-6) 02/09/19 05:15 02/16/19 05:14 02/11/19 02:57 Morphine Sulfate (Morphine Sulfate) 4 mg Q3H PRN IVP Severe Pain (Pain Scale 7-10) 02/09/19 05:15 02/16/19 05:14 02/10/19 09:30 Ondansetron HCl (Zofran) 4 mg Q4H PRN IVP Nausea & Vomiting 02/09/19 05:15 03/11/19 05:14 02/11/19 02:45 Ольга Robledo DO Feb 11, 2019 19:33
[2019-02-11 20:00] VITALS: BP 147/97
[2019-02-12] VITALS: BP 145/99
[2019-02-12] MEDS: D5NS w/KCl 40mEq 1000ml 1,000 ML IV SCH ×3 (01:18→20:35)
[2019-02-12 04:00] VITALS: BP 143/94
[2019-02-12 05:51] LABS: HEMOGLOBIN 10.4 G/DL (12.0-16.0); MEAN CORPUSCULAR VOLUME 96 FL (80-99); PLATELET COUNT 236 K/UL (150-450); RED BLOOD COUNT 3.34 M/UL (4.20-5.40); RED CELL DISTRIBUTION WIDTH 12.4 % (11.6-14.8); WHITE BLOOD COUNT 12.3 K/UL (4.8-10.8)
[2019-02-12 06:04] LABS: ANION GAP 7 mmol/L (5-15); BLOOD UREA NITROGEN 35 mg/dL (7-18); CARBON DIOXIDE 28 MMOL/L (21-32); CHLORIDE 106 MMOL/L (98-107); CREATININE 1.3 MG/DL (0.55-1.30); SODIUM 141 MMOL/L (136-145)
[2019-02-12 06:09] LABS: INR 0.9 (0.9-1.1)
[2019-02-12 08:00] VITALS: BP 141/84
[2019-02-12 08:48] LABS: ANION GAP 9 mmol/L (5-15); BLOOD UREA NITROGEN 4 mg/dL (7-18); CARBON DIOXIDE 25 MMOL/L (21-32); CHLORIDE 108 MMOL/L (98-107); CREATININE 0.7 MG/DL (0.55-1.30); POTASSIUM 3.9 MMOL/L (3.5-5.1); SODIUM 142 MMOL/L (136-145)
[2019-02-12 09:50] LABS: CALCIUM 8.9 MG/DL (8.5-10.1)
--- NOTE | 2019-02-12 10:22 | Surgery Progress Note ---
Surgery Progress Note Subjective Additional Comments overall stable no acute events intermittent nausea no emesis no bowel function no abd pain Objective Last 24 Hour Vital Signs Date Time Temp Pulse Resp B/P (MAP) Pulse Ox O2 Delivery O2 Flow Rate FiO2 02/12/19 08:00 98.7 83 19 141/84 (103) 99 02/12/19 04:00 98.7 66 18 143/94 (110) 98 02/12/19 00:00 98.8 66 17 145/99 (114) 98 02/11/19 21:00 Room Air 02/11/19 20:00 98.9 87 17 147/97 (114) 98 02/11/19 16:00 98.3 87 20 155/99 (117) 99 02/11/19 11:52 98.2 84 19 159/103 (121) 97 I&O Intake and Output 02/11/19 02/12/19 19:00 07:00 Intake Total 1600 ml 1100 ml Balance 1600 ml 1100 ml IV Total 1600 ml 1100 ml # Voids 4 Cardiovascular: RSR Respiratory: clear Abdomen: soft, flat, non-tender, decreased bowel sounds Extremities: no edema, no tenderness, no cyanosis Laboratory Tests Test 02/12/19 05:15 02/12/19 08:15 White Blood Count 12.3 K/UL (4.8-10.8) H Red Blood Count 3.34 M/UL (4.20-5.40) L Hemoglobin 10.4 G/DL (12.0-16.0) L Hematocrit 32.0 % (37.0-47.0) L Mean Corpuscular Volume 96 FL (80-99) # Mean Corpuscular Hemoglobin 31.2 PG (27.0-31.0) H Mean Corpuscular Hemoglobin Concent 32.6 G/DL (32.0-36.0) Red Cell Distribution Width 12.4 % (11.6-14.8) Platelet Count 236 K/UL (150-450) Mean Platelet Volume 5.4 FL (6.5-10.1) L Neutrophils (%) (Auto) % (45.0-75.0) Lymphocytes (%) (Auto) % (20.0-45.0) Monocytes (%) (Auto) % (1.0-10.0) Eosinophils (%) (Auto) % (0.0-3.0) Basophils (%) (Auto) % (0.0-2.0) Prothrombin Time 10.0 SEC (9.30-11.50) Prothromb Time International Ratio 0.9 (0.9-1.1) Activated Partial Thromboplast Time 25 SEC (23-33) Sodium Level 141 MMOL/L (136-145) 142 MMOL/L (136-145) Potassium Level 4.0 MMOL/L (3.5-5.1) 3.9 MMOL/L (3.5-5.1) Chloride Level 106 MMOL/L (98-107) 108 MMOL/L (98-107) H Carbon Dioxide Level 28 MMOL/L (21-32) 25 MMOL/L (21-32) Anion Gap 7 mmol/L (5-15) 9 mmol/L (5-15) Blood Urea Nitrogen 35 mg/dL (7-18) H 4 mg/dL (7-18) L Creatinine 1.3 MG/DL (0.55-1.30) # 0.7 MG/DL (0.55-1.30) Estimat Glomerular Filtration Rate 46.9 mL/min (>60) > 60 mL/min (>60) Glucose Level 214 MG/DL (74-106) H 115 MG/DL (74-106) #H Calcium Level 10.0 MG/DL (8.5-10.1) 8.9 MG/DL (8.5-10.1) Plan Problems: (1) Leukocytosis (2) Abdominal pain Assessment & Plan: 33-year-old female with acute onset abdominal pain nausea vomiting diarrhea. Leukocytosis 20,000 now resolving. Abdominal discomfort significantly improved since admission. Afebrile, hemodynamically stable. NG tube output with minimal clear gastric contents. No flatus or BM since admission. CT scan evaluated and are reviewed. Initial reading possible small bowel obstruction secondary to stricture with our radiologist noting a slight discrepancy with no definitive transition point. Abdominal exam is fairly benign at this time CT reviewed and agree with our radiologist interpretation Leukocytosis improving NG tube output minimal I had a long discussion with patient and her family at bedside they do not recommend urgent surgical intervention as she is improved since admission. Recommend bowel rest n.p.o. IV antibiotics for likely enteritis. She has no significant history of Crohn's, colitis, and family bowel disease or syndrome. This is acute onset of abdominal pain with nausea vomiting and diarrhea more likely enteritis associated with potential oral intake. Will follow with serial abdominal exams. If improving will anticipate removal of NG tube and trial oral diet. If worsening we will have to consider diagnostic laparoscopy to ensure no abnormal intra abdominal process Discussed with the patient and her family at bedside in regards to plan and care. Patient has not made significant improvement but is passing flatus. NG tube output is clearing up. Abdominal exam with some discomfort but no peritoneal signs significant tenderness rebound or guarding. Patient states she overall feels unwell but feels more comfortable when she gets the morphine. Labs have improved. I discussed with patient and family above and plan. Will consider diagnostic laparoscopy if does not significantly improve by tomorrow. Continue current management will follow with recognitions Thank you for allowing participate in patient care will follow with recommendations upper gi with small bowel to eval bowel caliber and sbo? today thank you (3) SBO (small bowel obstruction) Assessment & Plan: Findings: The distal ileum is markedly dilated, filled with small bowel feces. There is very slight stranding of the adjacent mesenteric fat. No definite transition point demonstrated, and the dilatation extends largely to the terminal ileum which is only slightly smaller in caliber than the more proximal bowel. There is a mildly dilated gas-filled single small bowel loop in the left upper quadrant with some small bowel feces seen within the adjacent segment. Normal appendix. No evidence of diverticulosis or diverticulitis. No free or loculated intraperitoneal gas or fluid. The distal esophagus, stomach, duodenum are unremarkable. Lack of IV contrast limits assessment of the solid organs. The liver, gallbladder, bile ducts, pancreas, spleen, adrenals are all unremarkable. There is a circumaortic left renal vein. The kidneys are unremarkable. No retroperitoneal or mesenteric mass or adenopathy. Uterus and ovaries are unremarkable. The included lung bases are clear. The bones are unremarkable. Impression: Dilated distal ileum with small bowel feces, slight stranding of the perienteric fat. Only slight tapering of the distal small bowel but no definite abrupt distal transition point. Suspect findings are functional on the basis of inflammatory changes of the distal ileum. Distal stricture not completely excludable. Single prominent gas-filled left upper quadrant small bowel loop, significance uncertain No other acute or significant abnormality. Incidental finding of circumaortic left renal vein This essentially agrees with the preliminary interpretation [facility], with some variation. Jerel Kay Feb 12, 2019 10:22
--- NOTE | 2019-02-12 11:11 | General Progress Note ---
Assessment/Plan Assessment/Plan: SBO, stricture vs gastroenteritis possible IBD n/v, intermittent low K, resolved CRPS RUE HTN Still some abd pain and nausea no appetite BP high at times, NPO BUN/Cr up; repeat normal - lab error await SBFT possible laparoscopy Subjective Constitutional: Reports: no symptoms Gastrointestinal/Abdominal: Reports: abdominal pain, nausea Allergies: Coded Allergies: INFLUENZA VIRUS VACCINES (Verified Allergy, Unknown, 02/08/19) VANCOMYCIN (Verified Allergy, Unknown, 02/08/19) Objective Last 24 Hour Vital Signs Date Time Temp Pulse Resp B/P (MAP) Pulse Ox O2 Delivery O2 Flow Rate FiO2 02/12/19 09:00 Room Air 02/12/19 08:00 98.7 83 19 141/84 (103) 99 02/12/19 04:00 98.7 66 18 143/94 (110) 98 02/12/19 00:00 98.8 66 17 145/99 (114) 98 02/11/19 21:00 Room Air 02/11/19 20:00 98.9 87 17 147/97 (114) 98 02/11/19 16:00 98.3 87 20 155/99 (117) 99 02/11/19 11:52 98.2 84 19 159/103 (121) 97 Intake and Output 02/11/19 02/12/19 19:00 07:00 Intake Total 1600 ml 1100 ml Balance 1600 ml 1100 ml IV Total 1600 ml 1100 ml # Voids 4 Laboratory Tests 02/12/19 05:15: White Blood Count 12.3H, Red Blood Count 3.34L, Hemoglobin 10.4L, Hematocrit 32.0L, Mean Corpuscular Volume 96#, Mean Corpuscular Hemoglobin 31.2H, Mean Corpuscular Hemoglobin Concent 32.6, Red Cell Distribution Width 12.4, Platelet Count 236, Mean Platelet Volume 5.4L, Neutrophils (%) (Auto) , Lymphocytes (%) ( Auto) , Monocytes (%) (Auto) , Eosinophils (%) (Auto) , Basophils (%) (Auto) , Prothrombin Time 10.0, Prothromb Time International Ratio 0.9, Activated Partial Thromboplast Time 25, Sodium Level 141, Potassium Level 4.0, Chloride Level 106, Carbon Dioxide Level 28, Anion Gap 7, Blood Urea Nitrogen 35H, Creatinine 1.3#, Estimat Glomerular Filtration Rate 46.9, Glucose Level 214H, Calcium Level 10.0 02/12/19 08:15: Sodium Level 142, Potassium Level 3.9, Chloride Level 108H, Carbon Dioxide Level 25, Anion Gap 9, Blood Urea Nitrogen 4L, Creatinine 0.7, Estimat Glomerular Filtration Rate > 60, Glucose Level 115#H, Calcium Level 8.9 Height (Feet): 5 Height (Inches): 3.00 Weight (Pounds): 135 General Appearance: no apparent distress Neck: supple Cardiovascular: normal rate Respiratory/Chest: lungs clear Abdomen: soft, no organomegaly, no mass, decreased bowel sounds, tender - RLQ, mild Edema: no edema noted Generalized Smith Roberts MD Feb 12, 2019 11:11
[2019-02-12 12:00] VITALS: BP 145/99
--- NOTE | 2019-02-12 13:44 | Diagnostic Imaging Report ---
Indication: Previous small bowel obstruction and abnormal CT 02/09/2019 COMPARISON: CT 02/09/2019 FINDINGS: Small bowel series was performed utilizing water-soluble contrast material. Serial films were obtained. Spinner Fixer film shows nonspecific bowel gas pattern. Water-soluble contrast was administered. By 30 minutes contrast is mostly through the small bowel. By 45 minutes, contrast is seen entering the terminal ileum and within the right hemicolon. Small bowel appears normal in caliber. There is no evidence of small bowel dilatation with normal, expedient transit the small bowel through to the colon. The CT images from 02/09/2019 were reviewed and clearly demonstrated abnormally dilated distal small bowel including the terminal ileum with fecalized stool-like contents indicative of stasis and obstruction. This has apparently resolved. IMPRESSION: Normal small bowel series. No evidence of bowel obstruction.
[2019-02-12 16:00] VITALS: BP 139/87
[2019-02-12 20:00] VITALS: BP 144/90
[2019-02-13] VITALS: BP 137/90
[2019-02-13 04:00] VITALS: BP 140/88
[2019-02-13] MEDS: D5NS w/KCl 40mEq 1000ml 1,000 ML IV SCH (04:56)
[2019-02-13 08:00] VITALS: BP 148/89
[2019-02-13 09:07] VITALS: BP 148/89
[2019-02-13] MEDS ORDERED: CIPRO500 MG PO (11:13)
[2019-02-13] MEDS ORDERED: METRONIDAZOLE500 MG ORAL (11:13)
--- NOTE | 2019-02-13 11:16 | General Progress Note ---
Assessment/Plan Assessment/Plan: gastroenteritis no evidence of IBD n/v, resolved low K, resolved CRPS RUE HTN No abd pain or nausea eating SBFT neg, no obstruction dc home on PO abx Subjective Constitutional: Reports: no symptoms Gastrointestinal/Abdominal: Reports: no symptoms; Denies: nausea, vomiting Allergies: Coded Allergies: INFLUENZA VIRUS VACCINES (Verified Allergy, Unknown, 02/08/19) VANCOMYCIN (Verified Allergy, Unknown, 02/08/19) Objective Last 24 Hour Vital Signs Date Time Temp Pulse Resp B/P (MAP) Pulse Ox O2 Delivery O2 Flow Rate FiO2 02/13/19 09:07 97.8 80 19 148/89 (108) 99 02/13/19 08:09 Room Air 02/13/19 08:00 97.8 80 19 148/89 (108) 99 02/13/19 04:00 98.1 75 16 140/88 (105) 97 02/13/19 00:00 98.2 69 16 137/90 (106) 98 02/12/19 21:00 Room Air 02/12/19 20:00 98.4 78 17 144/90 (108) 98 02/12/19 16:00 98.3 79 18 139/87 (104) 99 02/12/19 12:00 98.0 85 18 145/99 (114) 98 Intake and Output 02/12/19 02/13/19 19:00 07:00 Intake Total 2000 ml 1700 ml Balance 2000 ml 1700 ml Intake Oral 800 ml 500 ml IV Total 1200 ml 1200 ml # Voids 2 3 # Bowel Movements 1 Height (Feet): 5 Height (Inches): 3.00 Weight (Pounds): 135 Abdomen: non tender, soft, no organomegaly, no mass Smith Roberts MD Feb 13, 2019 11:16
[2019-02-13 11:38] VITALS: BP 140/96
[2019-02-13 12:25] LABS: BASOPHILS % (AUTO) 0.9 % (0.0-2.0); EOSINOPHILS % (AUTO) 1.1 % (0.0-3.0); HEMATOCRIT 39.1 % (37.0-47.0); LYMPHOCYTES % (AUTO) 34.2 % (20.0-45.0); MEAN CORPUSCULAR VOLUME 87 FL (80-99); MONOCYTES % (AUTO) 8.5 % (1.0-10.0); NEUTROPHILS % (AUTO) 55.3 % (45.0-75.0); PLATELET COUNT 216 K/UL (150-450); RED BLOOD COUNT 4.51 M/UL (4.20-5.40); RED CELL DISTRIBUTION WIDTH 10.6 % (11.6-14.8); WHITE BLOOD COUNT 8.2 K/UL (4.8-10.8)
[2019-02-13 12:42] LABS: ALANINE AMINOTRANSFERASE 29 U/L (12-78); ALBUMIN 3.6 G/DL (3.4-5.0); ALKALINE PHOSPHATASE 61 U/L (46-116); ANION GAP 11 mmol/L (5-15); ASPARTATE AMINO TRANSFERASE 23 U/L (15-37); BILIRUBIN,TOTAL 0.4 MG/DL (0.2-1.0); BLOOD UREA NITROGEN 4 mg/dL (7-18); CALCIUM 8.8 MG/DL (8.5-10.1); CARBON DIOXIDE 25 MMOL/L (21-32); CHLORIDE 107 MMOL/L (98-107); CREATININE 0.7 MG/DL (0.55-1.30); POTASSIUM 3.7 MMOL/L (3.5-5.1); SODIUM 142 MMOL/L (136-145)
--- NOTE | 2019-02-13 15:38 | Surgery Progress Note ---
Surgery Progress Note Subjective Additional Comments labs resolved multiple bm no pain no n/v/f/c tolerating oral diet Objective Last 24 Hour Vital Signs Date Time Temp Pulse Resp B/P (MAP) Pulse Ox O2 Delivery O2 Flow Rate FiO2 02/13/19 11:38 98.4 81 18 140/96 (111) 97 02/13/19 09:07 97.8 80 19 148/89 (108) 99 02/13/19 08:09 Room Air 02/13/19 08:00 97.8 80 19 148/89 (108) 99 02/13/19 04:00 98.1 75 16 140/88 (105) 97 02/13/19 00:00 98.2 69 16 137/90 (106) 98 02/12/19 21:00 Room Air 02/12/19 20:00 98.4 78 17 144/90 (108) 98 02/12/19 16:00 98.3 79 18 139/87 (104) 99 I&O Intake and Output 02/12/19 02/13/19 19:00 07:00 Intake Total 2000 ml 1700 ml Balance 2000 ml 1700 ml Intake Oral 800 ml 500 ml IV Total 1200 ml 1200 ml # Voids 2 3 # Bowel Movements 1 Cardiovascular: RSR Respiratory: clear Abdomen: soft, flat, non-tender, present bowel sounds, non-distended Extremities: no edema, no tenderness, no cyanosis Laboratory Tests Test 02/13/19 11:45 White Blood Count 8.2 K/UL (4.8-10.8) Red Blood Count 4.51 M/UL (4.20-5.40) Hemoglobin 13.0 G/DL (12.0-16.0) Hematocrit 39.1 % (37.0-47.0) Mean Corpuscular Volume 87 FL (80-99) # Mean Corpuscular Hemoglobin 28.9 PG (27.0-31.0) Mean Corpuscular Hemoglobin Concent 33.3 G/DL (32.0-36.0) Red Cell Distribution Width 10.6 % (11.6-14.8) L Platelet Count 216 K/UL (150-450) Mean Platelet Volume 8.7 FL (6.5-10.1) Neutrophils (%) (Auto) 55.3 % (45.0-75.0) Lymphocytes (%) (Auto) 34.2 % (20.0-45.0) Monocytes (%) (Auto) 8.5 % (1.0-10.0) Eosinophils (%) (Auto) 1.1 % (0.0-3.0) Basophils (%) (Auto) 0.9 % (0.0-2.0) Sodium Level 142 MMOL/L (136-145) Potassium Level 3.7 MMOL/L (3.5-5.1) Chloride Level 107 MMOL/L (98-107) Carbon Dioxide Level 25 MMOL/L (21-32) Anion Gap 11 mmol/L (5-15) Blood Urea Nitrogen 4 mg/dL (7-18) L Creatinine 0.7 MG/DL (0.55-1.30) Estimat Glomerular Filtration Rate > 60 mL/min (>60) Glucose Level 100 MG/DL (74-106) Calcium Level 8.8 MG/DL (8.5-10.1) Total Bilirubin 0.4 MG/DL (0.2-1.0) Aspartate Amino Transf (AST/SGOT) 23 U/L (15-37) Alanine Aminotransferase (ALT/SGPT) 29 U/L (12-78) Alkaline Phosphatase 61 U/L (46-116) Total Protein 7.1 G/DL (6.4-8.2) Albumin 3.6 G/DL (3.4-5.0) Globulin 3.5 g/dL Albumin/Globulin Ratio 1.0 (1.0-2.7) Plan Problems: (1) Leukocytosis (2) Abdominal pain Assessment & Plan: 33-year-old female with acute onset abdominal pain nausea vomiting diarrhea. Leukocytosis 20,000 now resolving. Abdominal discomfort significantly improved since admission. Afebrile, hemodynamically stable. NG tube output with minimal clear gastric contents. No flatus or BM since admission. CT scan evaluated and are reviewed. Initial reading possible small bowel obstruction secondary to stricture with our radiologist noting a slight discrepancy with no definitive transition point. Abdominal exam is fairly benign at this time CT reviewed and agree with our radiologist interpretation Leukocytosis improving NG tube output minimal I had a long discussion with patient and her family at bedside they do not recommend urgent surgical intervention as she is improved since admission. Recommend bowel rest n.p.o. IV antibiotics for likely enteritis. She has no significant history of Crohn's, colitis, and family bowel disease or syndrome. This is acute onset of abdominal pain with nausea vomiting and diarrhea more likely enteritis associated with potential oral intake. Will follow with serial abdominal exams. If improving will anticipate removal of NG tube and trial oral diet. If worsening we will have to consider diagnostic laparoscopy to ensure no abnormal intra abdominal process Discussed with the patient and her family at bedside in regards to plan and care. Patient has not made significant improvement but is passing flatus. NG tube output is clearing up. Abdominal exam with some discomfort but no peritoneal signs significant tenderness rebound or guarding. Patient states she overall feels unwell but feels more comfortable when she gets the morphine. Labs have improved. I discussed with patient and family above and plan. Will consider diagnostic laparoscopy if does not significantly improve by tomorrow. Continue current management will follow with recognitions Thank you for allowing participate in patient care will follow with recommendations diet d/c outpt gi follow up thank you (3) SBO (small bowel obstruction) Assessment & Plan: Findings: The distal ileum is markedly dilated, filled with small bowel feces. There is very slight stranding of the adjacent mesenteric fat. No definite transition point demonstrated, and the dilatation extends largely to the terminal ileum which is only slightly smaller in caliber than the more proximal bowel. There is a mildly dilated gas-filled single small bowel loop in the left upper quadrant with some small bowel feces seen within the adjacent segment. Normal appendix. No evidence of diverticulosis or diverticulitis. No free or loculated intraperitoneal gas or fluid. The distal esophagus, stomach, duodenum are unremarkable. Lack of IV contrast limits assessment of the solid organs. The liver, gallbladder, bile ducts, pancreas, spleen, adrenals are all unremarkable. There is a circumaortic left renal vein. The kidneys are unremarkable. No retroperitoneal or mesenteric mass or adenopathy. Uterus and ovaries are unremarkable. The included lung bases are clear. The bones are unremarkable. Impression: Dilated distal ileum with small bowel feces, slight stranding of the perienteric fat. Only slight tapering of the distal small bowel but no definite abrupt distal transition point. Suspect findings are functional on the basis of inflammatory changes of the distal ileum. Distal stricture not completely excludable. Single prominent gas-filled left upper quadrant small bowel loop, significance uncertain No other acute or significant abnormality. Incidental finding of circumaortic left renal vein This essentially agrees with the preliminary interpretation provided overnight by [facility] service, with some variation. Jerel Kay Feb 13, 2019 15:38
--- NOTE | 2019-02-14 08:07 | Discharge Summary ---
Discharge Summary Discharge Summary _ DATE OF ADMISSION: 02/09/2019 DATE OF DISCHARGE: 02/13/2019 DISCHARGED BY: Dr. Roberts REASON FOR ADMISSION: 33 years old female with past medical history of complex regional pain syndrome , involving the right upper extremity following the injury, mild hypertension, presented to emergency department complaining of abdominal pain. Pain started the same day and was intensified over the 4 hours and associated with nausea and nonbloody nonbilious vomiting. She was brought to emergency department by paramedics. CT of the abdomen and pelvis demonstrated dilated distal ileum with small bowel feces, slight stranding of the perienteric fat. Only slight tapering of the distal small bowel but no definite abrupt distal transition point. Suspect findings are functional on the basis of inflammatory changes of the distal ileum. Distal stricture not completely excludable. Single prominent gas-filled left upper quadrant small bowel loop, significance uncertain. No other acute or significant abnormality. No family history of Crohn's disease or ulcerative colitis. Laboratory work-up revealed leukocytosis WBC 20.6, stable hemoglobin and hematocrit. Potassium 3.1. Stable LFT and lipase. Urinalysis revealed no evidence of urinary tract infection, +2 protein. Urine test was negative. In emergency department patient received IV fluids , analgesia and antiemetic. NG tube was placed. KUB confirmed correct placement of NG tube. Patient subsequently admitted to medical surgical floor for further management for bowel obstruction with possible stricture of the small bowel. CONSULTANTS: surgery Dr. Kay [facility]SE: Patient admitted to medical surgical floor. Patient was kept n.p.o., bowel rest maintained, and NG tube was connected to intermittent suction. Pain management was addressed as needed. Patient started on empiric antibiotic. Supportive care provided. Potassium was replaced. Surgeon seen and evaluated patient. Abdominal exam was fairly benign. CT scan personally reviewed by surgeon , who agreed with radiologist interpretation. Minimal output from NG tube. Leukocytosis was improving. Surgeon did not recommend any urgent surgical intervention , since patient was improving. Bowel rest, n.p.o. status, IV fluids and IV antibiotic were continued for likely enteritis. Patient was followed-up with serial abdominal exams. NG tube was discontinued . Follow-up KUB revealed no acute findings. Patient started on clear liquids and was was able to tolerate it. Symptomatic care provided Small bowel follow-through was normal , no evidence of bowel obstruction. Diet was advanced as tolerated. Leukocytosis resolved. Potassium stable after replacement. Pain resolved, no further vomiting. Patient clinically improved and was stable for discharge home . Complete antibiotics course at home. FINAL DIAGNOSES: Gastroenteritis, no evidence of IBD Possible small bowel obstruction-resolved Abdominal pain with nausea and vomiting-resolved Hypokalemia-resolved Right upper extremity complex regional pain syndrome Hypertension Leukocytosis-resolved DISCHARGE MEDICATIONS: See Medication Reconciliation list. DISCHARGE INSTRUCTIONS: Patient was discharged home . Follow up with primary care provider in one week. I have been assigned to dictate discharge summary for this account. I was not involved in the patient's management. Aimee Dumas NP Feb 14, 2019 08:06
== END 2019-02-13 13:30 | disposition home or self-care (01) | DRG 389 ==
LOC: EDBD 23:17 → EMR 23:44 → 3E 02-09 02:38 → EDBEDREQ 02-09 03:00
DX: K56.609 Unspecified intestinal obstruction, unspecified as to partial versus complete obstruction (principal); G90.511 Complex regional pain syndrome I of right upper limb; K52.9 Noninfective gastroenteritis and colitis, unspecified; E87.6 Hypokalemia; I10 Essential (primary) hypertension; Z88.1 Allergy status to other antibiotic agents; Z88.7 Allergy status to serum and vaccine
CPT/HCPCS: 36415; 74018; 74176; 74250; 80048; 80053; 81003; 81025; 82150; 83690; 85007; 85025; 85610; 85651; 85730; 86140; 96361; 96365; 96367; 96368; 96375; 96376; 99285; J2405

== ENCOUNTER 2019-11-11 10:06 | Emergency (ER) | payer BC, OTHER ==
[~2019-11-11] VITALS: Ht 160 cm; Wt 59.0 kg
[~2019-11-11 10:06] MED LIST: CIPRO500 MG PO; METRONIDAZOLE500 MG ORAL; MULTIVITAMINS1 EAC2 ORAL; VITAMIN C500 M1 ORAL
--- NOTE | 2019-11-11 10:20 | NUR ---
ED Nurse Note: Pt ambulated to ED from home d/t abdominal pain from lower radiating to mid region with nausea/vomiting started this morning. Pt is AOx4, noted with guarding behavior on the affected site. VSS, on RA, afebrile on triage. Placed on bed and gown, will continue to monitor.
[2019-11-11 10:24] VITALS: BP 161/104
--- NOTE | 2019-11-11 10:24 | NUR ---
ED Nurse Note: ERMD at bedside.
[2019-11-11] MEDS ORDERED: Ketorolac 30mg Inj IV ONE (10:30)
[2019-11-11 10:47] LABS: APPEARANCE,URINE CLEAR; BILIRUBIN, URINE NEGATIVE (NEGATIVE); COLOR,URINE PALE YELLOW; GLUCOSE, URINE (UA) NEGATIVE (NEGATIVE); KETONES,URINE NEGATIVE (NEGATIVE); LEUKOCYTE ESTERASE ,URINE NEGATIVE (NEGATIVE); NITRITE,URINE NEGATIVE (NEGATIVE); PH,URINE 8 (4.5-8.0); PROTEIN,URINE NEGATIVE (NEGATIVE); UROBILINOGEN,URINE NORMAL MG/DL (0.0-1.0)
[2019-11-11 10:48] LABS: BASOPHILS % (AUTO) 1.2 % (0.0-2.0); HEMOGLOBIN 14.1 G/DL (12.0-16.0); LYMPHOCYTES % (AUTO) 27.5 % (20.0-45.0); MEAN CORPUSCULAR VOLUME 90 FL (80-99); MONOCYTES % (AUTO) 6.8 % (1.0-10.0); NEUTROPHILS % (AUTO) 63.4 % (45.0-75.0); PLATELET COUNT 233 K/UL (150-450); RED BLOOD COUNT 5.01 M/UL (4.20-5.40); RED CELL DISTRIBUTION WIDTH 13.4 % (11.6-14.8); WHITE BLOOD COUNT 7.1 K/UL (4.8-10.8)
--- NOTE | 2019-11-11 11:15 | NUR ---
ED Nurse Note: taken to ct
--- NOTE | 2019-11-11 11:30 | NUR ---
ED Nurse Note: back from ct
--- NOTE | 2019-11-11 11:43 | Diagnostic Imaging Report ---
EXAM: CT Abdomen and Pelvis Without Intravenous Contrast CLINICAL HISTORY: ABD PAIN TECHNIQUE: Axial computed tomography images of the abdomen and pelvis without intravenous contrast. CTDI is 4.2 mGy and DLP is 206.2 mGy-cm. One or more of the following dose reduction techniques were used: automated exposure control, adjustment of the mA and/or kV according to patient size, use of iterative reconstruction technique. COMPARISON: CT abdomen/pelvis on 02/09/2019 FINDINGS: Lung bases: Unremarkable. No mass. No consolidation. ABDOMEN: Liver: Unremarkable. Gallbladder and bile ducts: Unremarkable. No calcified stones. No ductal dilation. Pancreas: Unremarkable. No ductal dilation. Spleen: Unremarkable. No splenomegaly. Adrenals: Unremarkable. No mass. Kidneys and ureters: No hydronephrosis or stone. Stomach and bowel: Decompressed sigmoid colon and descending colon. No bowel obstruction. No mucosal thickening. PELVIS: Appendix: Normal appendix. Bladder: Mild prominence of the bladder wall may be secondary to under distention. Please correlate with urinalysis if concerned for cystitis. No stones. Reproductive: 3.1 cm hypodense lesion in the right adnexa may represent an ovarian cyst. Further evaluation can be performed with ultrasound if clinically indicated. ABDOMEN and PELVIS: Intraperitoneal space: Small amount of free fluid in the pelvis may be physiologic. No free air. Bones/joints: No acute fracture. No dislocation. Soft tissues: Small fat-containing umbilical hernia. Vasculature: Unremarkable. No abdominal aortic aneurysm. Lymph nodes: Unremarkable. No enlarged lymph nodes. IMPRESSION: 1. 3.1 cm hypodense lesion in the right adnexa may represent an ovarian cyst. Further evaluation can be performed with ultrasound if clinically indicated. 2. Mild prominence of the bladder wall may be secondary to under distention. Please correlate with urinalysis if concerned for cystitis.
[2019-11-11 12:25] LABS: ANION GAP 10 mmol/L (5-15); BLOOD UREA NITROGEN 14 mg/dL (7-18); CARBON DIOXIDE 27 MMOL/L (21-32); CHLORIDE 103 MMOL/L (98-107); CREATININE 0.8 MG/DL (0.55-1.30); POTASSIUM 3.7 MMOL/L (3.5-5.1); SODIUM 140 MMOL/L (136-145)
[2019-11-11 12:30] LABS: ALANINE AMINOTRANSFERASE 30 U/L (12-78); ALBUMIN 4.2 G/DL (3.4-5.0); ALBUMIN/GLOBULIN RATIO 1.1 (1.0-2.7); ALKALINE PHOSPHATASE 70 U/L (46-116); ASPARTATE AMINO TRANSFERASE 19 U/L (15-37); BILIRUBIN,TOTAL 0.4 MG/DL (0.2-1.0)
--- NOTE | 2019-11-11 13:11 | NUR ---
ED Nurse Note: US tech at bedside.
[2019-11-11] MEDS ORDERED: NORCO 5-325 TA1 EAC1 ORAL (13:23)
[2019-11-11] MEDS ORDERED: ONDANSETRON ODT4 MG BC (13:23)
[2019-11-11] MEDS ORDERED: HYDROcodone/Acetamin 5/325 tab ORAL ONE (13:30)
--- NOTE | 2019-11-11 13:55 | NUR ---
ED Nurse Note: US tech done.
[2019-11-11 14:25] VITALS: BP 125/94
--- NOTE | 2019-11-11 14:25 | NUR ---
ER DISCHARGE NOTE: Pt is cleared to be discharged per ERMD, pt is aox4, on room air, with stable vital signs. pt was given dc and prescription instructions, pt was able to verbalize understanding, pt id band and iv site removed without complications. pt is able to ambulate with steady gait. pt took all belongings.
--- NOTE | 2019-11-11 14:41 | Diagnostic Imaging Report ---
EXAM: US Pelvis Transabdominal, Complete CLINICAL HISTORY: PAIN TECHNIQUE: Real-time complete transabdominal pelvic ultrasound with image documentation. COMPARISON: CT abdomen/pelvis on 11/11/2019 FINDINGS: Uterus: Measures 8.3 x 3.8 x 5.3 cm. Probable tiny calcification in the lower uterine segment/cervix. Endometrium measures mm. Right ovary: Measures 5.6 x 3.0 x 2.9 cm. Probable hemorrhagic right ovarian cyst measuring 3.0 x 2.2 x 3.0 cm. Normal color Doppler flow to the right ovary. Left ovary: Measures 2.9 x 1.8 x 2.3 cm. Normal appearance with normal color Doppler flow. Other: Small amount of free fluid in the pelvis. No adnexal mass. IMPRESSION: Probable hemorrhagic right ovarian cyst measuring up to 3 cm. No evidence of ovarian torsion.
--- NOTE | 2019-11-13 14:12 | Emergency Room Report ---
History of Present Illness General Chief Complaint: Abdominal Pain Source: Patient Present Illness HPI Patient is a 34-year-old female who presents after increased abdominal discomfort. Gradual onset of symptoms. Reports having prior history of ovarian cyst in the past. Onset of pain this morning. Denies any fever. Reports having some increased pain with movement. Pain is primarily in the right lower abdomen. Denies any discharge or worsening fever. Allergies: Coded Allergies: INFLUENZA VIRUS VACCINES (Verified Allergy, Unknown, 02/08/19) VANCOMYCIN (Verified Allergy, Unknown, 02/08/19) COVID-19 Screening Contact w/high risk pt: No Recent Travel to affected area: No Experienced COVID-19 symptoms?: No COVID-19 Testing performed [employer]: Yes COVID-19 Screening: Negative COVID-19 COVID-19 Testing Source: 09/2019 Patient History Past Medical History: see triage record Past Surgical History: unable to obtain Last Menstrual Period: 10/12/19 Now: No Reviewed Nursing Documentation: PMH: Agreed; PSxH: Agreed Nursing Documentation-PMH Hx Cardiac Problems: No Hx Cancer: No 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 Hx Neurological Problems: No Review of Systems All Other Systems: negative except mentioned in HPI Physical Exam Vital Signs Date Time Temp Pulse Resp B/P (MAP) Pulse Ox O2 Delivery O2 Flow Rate FiO2 11/11/19 10:15 98.4 60 16 161/104 (123) 96 Room Air Sp02 EP Interpretation: reviewed, normal General Appearance: normal inspection, well appearing, no apparent distress, alert, GCS 15 Head: atraumatic ENT: normal ENT inspection, hearing grossly normal, normal voice Neck: normal inspection, full range of motion, supple, no bony tend Respiratory: normal inspection, lungs clear, normal breath sounds, no respiratory distress, no retraction, no wheezing Cardiovascular #1: regular rate, rhythm, no edema Gastrointestinal: normal inspection, normal bowel sounds, non tender, soft, no guarding, no hernia Genitourinary: no CVA tenderness Musculoskeletal: normal inspection, back normal, normal range of motion Neurologic: alert, responsive, speech normal, normal inspection Psychiatric: normal inspection, judgement/insight normal, mood/affect normal Medical Decision Making Diagnostic Impression: Primary Impression: Nonspecific abdominal pain Additional Impression: Ovarian cyst ER Course Patient presented for abdominal pain. Differential diagnoses included ischemic bowel, appendicitis, perforated viscus, abdominal aortic aneurysm, inferior myocardial infarction, viral gastroenteritis among others.Because patient's complexity imaging studies, and laboratory testing ordered. Laboratory testing showed . Patient's laboratory testing was unremarkable. White blood count was was normal CT of the abdomen pelvis showed: Showed some cystic lesion in the right ovary. Pelvic ultrasound subsequently showed adequate ovarian flow with small amount of free fluid. Patient was given a prescription for medications for pain. She advised to follow-up with her [employer] for recheck. Patient appears to be stable for close outpatient follow up. The patient is advised to follow up with primary care doctor in 1-2 days. Patient is advised to return if any worsening condition or if any changes in status that are concerning. This report is dictated with [employer] pipe layer software which may occasionally lead to discrepancies related to use of this software. Labs Test 11/11/19 10:30 White Blood Count 7.1 K/UL (4.8-10.8) Red Blood Count 5.01 M/UL (4.20-5.40) Hemoglobin 14.1 G/DL (12.0-16.0) Hematocrit 45.0 % (37.0-47.0) Mean Corpuscular Volume 90 FL (80-99) Mean Corpuscular Hemoglobin 28.1 PG (27.0-31.0) Mean Corpuscular Hemoglobin Concent 31.3 G/DL (32.0-36.0) Red Cell Distribution Width 13.4 % (11.6-14.8) Platelet Count 233 K/UL (150-450) Mean Platelet Volume 9.9 FL (6.5-10.1) Neutrophils (%) (Auto) 63.4 % (45.0-75.0) Lymphocytes (%) (Auto) 27.5 % (20.0-45.0) Monocytes (%) (Auto) 6.8 % (1.0-10.0) Eosinophils (%) (Auto) 1.0 % (0.0-3.0) Basophils (%) (Auto) 1.2 % (0.0-2.0) Urine Color Pale yellow Urine Appearance Clear Urine pH 8 (4.5-8.0) Urine Specific [place] 1.015 (1.005-1.035) Urine Protein Negative (NEGATIVE) Urine Glucose (UA) Negative (NEGATIVE) Urine Ketones Negative (NEGATIVE) Urine Blood Negative (NEGATIVE) Urine Nitrite Negative (NEGATIVE) Urine Bilirubin Negative (NEGATIVE) Urine Urobilinogen Normal MG/DL (0.0-1.0) Urine Leukocyte Esterase Negative (NEGATIVE) Urine HCG, Qualitative Negative (NEGATIVE) Sodium Level 140 MMOL/L (136-145) Potassium Level 3.7 MMOL/L (3.5-5.1) Chloride Level 103 MMOL/L (98-107) Carbon Dioxide Level 27 MMOL/L (21-32) Anion Gap 10 mmol/L (5-15) Blood Urea Nitrogen 14 mg/dL (7-18) Creatinine 0.8 MG/DL (0.55-1.30) Estimat Glomerular Filtration Rate > 60 mL/min (>60) Glucose Level 102 MG/DL (74-106) Calcium Level 9.0 MG/DL (8.5-10.1) Total Bilirubin 0.4 MG/DL (0.2-1.0) Aspartate Amino Transf (AST/SGOT) 19 U/L (15-37) Alanine Aminotransferase (ALT/SGPT) 30 U/L (12-78) Alkaline Phosphatase 70 U/L (46-116) Total Protein 8.1 G/DL (6.4-8.2) Albumin 4.2 G/DL (3.4-5.0) Globulin 3.9 g/dL Albumin/Globulin Ratio 1.1 (1.0-2.7) Lipase 129 U/L (73-393) Last Vital Signs Date Time Temp Pulse Resp B/P (MAP) Pulse Ox O2 Delivery O2 Flow Rate FiO2 11/11/19 14:25 98.4 75 20 125/94 98 Room Air Status: improved Disposition: HOME, SELF-CARE Condition: Stable Scripts Hydrocodone Bit/Acetaminophen 5-325* (NORCO 5-325 TABLET*) 1 Each Tablet 1 TAB ORAL Q4H PRN for FOR PAIN, #12 TAB 0 Refills Prov: Eleazar Ruvalcaba MD 11/11/19 Ondansetron Odt* (ZOFRAN ODT*) 4 Mg Tab.rapdis 4 MG BC EVERY 8 HOURS, #10 TAB 0 Refills Prov: Eleazar Ruvalcaba MD 11/11/19 Patient Instructions: Abdominal Pain, Adult Additional Instructions: Follow up with obgyn for recheck. Return if worse. Eleazar Ruvalcaba MD Nov 13, 2019 14:12
== END 2019-11-11 14:25 | disposition home or self-care (01) ==
LOC: EMR 10:37
DX: N83.201 Unspecified ovarian cyst, right side (principal); Z88.8 Allergy status to other drugs, medicaments and biological substances; Z88.7 Allergy status to serum and vaccine
CPT/HCPCS: 36415; 74176; 76830; 76856; 80053; 81003; 81025; 83690; 85025; 96374; 96375; J1885; J2405; Z7502; 99284